=== PATIENT | male | born 1985 | race Hispanic/Latino ===

== ENCOUNTER 2022-08-12 20:28 | Emergency (ER) | payer BC ==
[~2022-08-12] VITALS: Ht 162.6 cm; Wt 86.2 kg
[2022-08-12] MEDS ORDERED: SILVER NITRATE APPLICATOR 1 SWAB TP ONE (21:54)
[2022-08-12] MEDS ORDERED: SILVER NITRATE APPLICATOR 1 SWAB TP SCH (22:00)
[2022-08-12] MEDS ORDERED: IBUP-2076 PO (22:03)
[2022-08-12 22:17] VITALS: BP 114/74
== END 2022-08-12 22:22 | disposition home or self-care (01) ==
LOC: EDH 20:28
DX: T81.30XD Disruption of wound, unspecified, subsequent encounter (principal); F41.9 Anxiety disorder, unspecified; F17.200 Nicotine dependence, unspecified, uncomplicated; Z90.49 Acquired absence of other specified parts of digestive tract